=== PATIENT | female | born 1975 | race Caucasian/White ===

== ENCOUNTER → 2023-05-03 | Outpatient (CLI) | payer OTHER ==
[~2023-05-03] MED LIST: Bactrim 400-801 EACH PO; CIPR500 PO; DIPH50 PO; EMERGEN-C 1,01000 MG PO; FAMO20 PO; HYDACE5 PO; ONDA4 PO; ONDA4ODT MM; PHENA200 PO; RXPHEN200 PO; SUCR1 PO; SULTRIDS PO; TOCO400; TRAM50 PO
[2023-05-07 10:43] LABS: HSV 1 SUBTYPE BY PCR Detected; HSV 2 SUBTYPE BY PCR Not Detected; HSV SUBTYPE SOURCE FACIAL LESION
== END ==
LOC: LAB 08:42 → LAB SHORT 08:42
PROVIDERS: Emergency Medicine
DX: L98.9 Disorder of the skin and subcutaneous tissue, unspecified (principal)
CPT/HCPCS: 87529